=== PATIENT | male | born 1990 | race Caucasian/White ===

== ENCOUNTER 2023-06-19 11:00 | Outpatient (RCR) | payer MEDICARE, OTHER, SELFPAY | END 2023-07-19 13:11 | disposition home or self-care (01) | LOC: PT 11:00 | PROVIDERS: Visit Provider Family Medicine | DX: M21.752 Unequal limb length (acquired), left femur (principal) | CPT/HCPCS: 97110; 97163; 97530 ==

== ENCOUNTER 2024-03-11 11:29 | Outpatient (CLI) | payer MEDICARE, OTHER, SELFPAY ==
[2024-03-11 11:47] LABS: Occult Blood,Stool Negative (Negative)
[2024-03-13 15:12] LABS: Calprotectin, Fecal <5 ug/g (0-120)
== END 2024-03-11 23:59 | disposition home or self-care (01) ==
LOC: LAB.DROPOF 11:30
PROVIDERS: PCP Nurse Practitioner; Visit Provider Nurse Practitioner
DX: K62.5 Hemorrhage of anus and rectum (principal); R19.4 Change in bowel habit; R19.8 Other specified symptoms and signs involving the digestive system and abdomen; Z80.0 Family history of malignant neoplasm of digestive organs
CPT/HCPCS: 82272; 83993; G0328

== ENCOUNTER 2024-05-23 07:16 | Day surgery (SDC) | payer MEDICARE, OTHER, SELFPAY ==
[2024-05-21 11:28] VITALS: BMI 26.4
[2024-05-23 07:47] VITALS: BP 121/82; PULSE 104; RESP 18; TEMP 36.6; O2SAT 98
--- NOTE | 2024-05-23 07:56 | EXP.ANES.CKL ---
[facility] Disclaimer: The information contained in this section may have been updated after the patient was seen, as this information can be updated by other users. Medical History Allergies Hernia of testicle Recurrent hernia Heartburn Surgical History No history of previous surgery Family History Grandmother Anemia Stroke Coronary artery disease FHx: mental illness Heart attack Hypertension Grandfather Anemia Asthma Cancer FHx: mental illness Hyperlipidemia Hypertension Brother Asthma Cancer FHx: mental illness Family/Other Cancer Diabetes Heart attack Hypertension Father Cancer Coronary artery disease Mother FHx: mental illness Hyperlipidemia Hypertension Social History Smoking Status: Never smoker alcohol intake: never substance use type: denies use current occupational status: disabled Travel in the last 8 weeks: None adopted: No caffeine: No [facility] Anesthesia Checklist Patient Identification Patient Identification: Arm Band and Verbal (Name & ) Structural Data Admitted From: Home Planned Operative Procedure/s: Colonoscopy Consent for Planned Operative Procedure(s) Verified: Yes Verified Documents: Surgical Consent and History and Physical NPO Status Verified Time NPO: 00:00 Additional verifications Anesthesia Reactions: No Airway Assessment Mallampati Score:: Class I C-Spine Mobility Assessed: Yes TMJ Mobility Assessed: Yes Dentition: Good Dentition Neurological Assessment Level of Consciousness: Awake Hx Seizures: No Numbness or tingling in extremities: No Anesthesia Plan Anesthesia Risk discussed: Yes Anesthesia Plan: Verified ASA Class: II Anesthesia Type: MAC
[2024-05-23 08:48] VITALS: O2SAT 98
--- NOTE | 2024-05-23 08:52 | EXP.HP ---
History of Present Illness *Admission Date: 05/23/24 *Reason for visit:: Bright red rectal bleeding *History of present illness: Mr. Mathews is a 33-year-old gentleman who is here for bright red rectal bleeding since November 2023. He also has had a change in bowel habits and a strong family history of colon cancer (father in his late 40s). He has never had a colonoscopy. The examination is deemed medically necessary for colonoscopy. The patient has been seen, interviewed and examined prior to the procedure by both myself and the anesthesia provider. [facility] Disclaimer: The information contained in this section may have been updated after the patient was seen, as this information can be updated by other users. Medical History Allergies Hernia of testicle Recurrent hernia Heartburn Surgical History No history of previous surgery Family History Grandmother Anemia Stroke Coronary artery disease FHx: mental illness Heart attack Hypertension Grandfather Anemia Asthma Cancer FHx: mental illness Hyperlipidemia Hypertension Brother Asthma Cancer FHx: mental illness Family/Other Cancer Diabetes Heart attack Hypertension Father Cancer Coronary artery disease Mother FHx: mental illness Hyperlipidemia Hypertension Social History Smoking Status: Never smoker alcohol intake: never substance use type: denies use current occupational status: disabled Travel in the last 8 weeks: None adopted: No caffeine: No Other Medical History Have you received the Pneumonia Vaccine: No Review of Systems Review of Systems Review of systems (narrative): Negative *Cardiovascular Comments: Negative *Gastrointestinal Comments: Negative *Genitourinary Comments: Negative *Musculoskeletal Comments: Negative *Neurologic Comments: Negative Meds Home Medications and Allergies Home Medications ?Medication ?Instructions ?Recorded ?Confirmed ?Type acetaminophen 160 mg chewable 640 mg PO Q6H 03/07/24 05/23/24 History tablet (Children's Tylenol) betamethasone valerate 0.1 % 1 applic topical DAILY 03/07/24 05/23/24 History topical ointment bismuth subsalicylate 262 mg 2 tab PO Q30-60M PRN Acid Reflux 03/07/24 05/23/24 History chewable tablet (Pepto-Bismol) famotidine-Ca carb-mag hydrox 10 1 tab PO DAILY PRN Acid Reflux 03/07/24 05/23/24 History mg-800 mg-165 mg chewable tablet (Pepcid Complete) ibuprofen 100 mg chewable tablet 200 mg PO Q8H 03/07/24 05/23/24 History (Children's Motrin Jr Strength) sodium,potassium,mag sulfates 17.5 See Rx Instructions PO .COMPLEX 05/13/24 05/23/24 Rx gram-3.13 gram-1.6 gram oral soln #354 mL (Suprep Bowel Prep Kit) New Prescriptions to Start Prescriptions: Allergies Allergy/AdvReac Type Severity Reaction Status Date / Time latex Allergy Severe Blister Verified 05/23/24 07:45 amoxicillin Allergy Intermediate Rash Verified 05/23/24 07:45 Penicillins Allergy Intermediate Rash Verified 05/23/24 07:45 clarithromycin [From Biaxin] Allergy Mild Vomiting Verified 05/23/24 07:45 erythromycin base Allergy Mild Rash Verified 05/23/24 07:45 choraceptic spray Allergy Mild Hives Uncoded 03/07/24 10:44 Exam Data for Last 24 hours Vital signs and Labs for Last 24 Hours: Temp Pulse Resp BP Pulse Ox O2 Del Method 97.8 F 104 H 18 121/82 98 Room Air 05/23/24 07:47 05/23/24 07:47 05/23/24 07:47 05/23/24 07:47 05/23/24 07:47 05/23/24 07:47 I & O for Last 24 hours: Intake & Output 05/20/24 05/21/24 05/22/24 05/23/24 23:59 23:59 23:59 23:59 Weight 190 lb *Routine HEENT Exam Head: Present normocephalic Eye: Present EOMI and PERRL ENT: Present mucous membranes moist *Routine Neck Exam Neck: Present supple *Routine Respiratory Exam Respiratory: Present CTA bilaterally *Routine Cardiovascular Exam Cardiovascular: Present RRR *Routine Abdominal Exam Abdominal: Present soft and normoactive bowel sounds; Absent tenderness *Routine Rectal Exam Rectal:: deferred *Routine Genitalia Exam Genitalia:: deferred *Routine Extremities Exam Extremities: Absent cyanosis, clubbing or edema *Routine Skin Exam Skin: Present warm; Absent rash *Routine Neurological Exam Neurological: Present alert and oriented X3 Assessment and Plan *Assessment and plan (1) BRBPR (bright red blood per rectum): Status: Acute Category: Medical Code(s): K62.5 - Hemorrhage of anus and rectum (2) Family history of colon cancer in father: Status: Acute Category: Medical Code(s): Z80.0 - Family history of malignant neoplasm of digestive organs (3) Change in bowel movement: Status: Acute Category: Medical Code(s): R19.8 - Other specified symptoms and signs involving the digestive system and abdomen Plan A/P: 1. Bright red blood per rectum (new since November 2023), change in bowel habits and strong family history of colon cancer is the preprocedural diagnosis. The patient will be anesthetized/sedated using MAC sedation. The patient has been seen and examined. Cardiac and lung assessment prior to the examination is stable. Proceed with planned colonoscopy
--- NOTE | 2024-05-23 09:00 | P.PCN_ITS ---
[facility] Procedure Note Date: 05/23/24 Time: 09:13 Procedure Note:: Colonoscopy Procedure Report: Colonoscopy with cold snare polypectomy and hemorrhoid band ligation Endoscopist: Babatunde Padilla II, MD Referring physician: TAMEKA Harrell Date of Procedure: May 23, 2024 Equipment: Olympus 190 variable stiffness pediatric colonoscope Sedation: MAC sedation Indication: Mr. Mathews is a 33-year-old gentleman who is here for diagnostic colonoscopy secondary to bright red rectal bleeding that began in November 2023. This started on November 19, 2023 and he had 3 days of bright red blood. This recurred again 2 weeks later. He states that he has had this every 2 to 3 weeks and he will have episodic blood on the tissue and occasionally on the bowel movement for 2 to 3 days. He reports no abdominal pain but does have some tenesmus and the feeling of incomplete defecation with excessive wiping. He reports no mucus with his bowel movements. His bowel movements will vary in color and consistency between hard, soft and watery as well as light to dark bowel movements. He reports no weight loss. He has had no gassiness or bloating. He does state that his father had colon cancer in his late 40s. His maternal grandfather had colon cancer diagnosed recently at the age of 83. He has 2 paternal uncles with colon cancer. This is his first colonoscopy. Procedure: Prior to the procedure, a history and physical exam was performed, and patient's medications and allergies were reviewed. The risks, benefits and alternatives of the sedation and procedure were discussed with the patient. All questions were answered and informed consent was obtained. The patient was brought to the procedure room. Patient identification and proposed procedure were verified by the physician and the nurse. The patient was placed in a left lateral decubitus position and the scope was passed under direct vision. Throughout the procedure, the patient's blood pressure, pulse, and oxygen saturations were monitored continuously. The colonoscopy was accomplished without difficulty. The patient tolerated the procedure well. Findings: On digital rectal examination there was normal rectal tone. There were no external hemorrhoids or anal fissures. The prostate was 2+, smooth, soft, symmetric without nodules. The colonoscope was introduced through the anal canal to the rectum and advanced to the cecum. The ileocecal valve and appendiceal orifice were identified. The scope was advanced a short distance into the ileum which appeared grossly normal. The scope was then withdrawn into the colon. There was a diverticulum in the cecum. There was a diminutive 3 mm polyp in the descending colon removed via cold snare polypectomy. The remaining cecum, ascending, transverse, descending, sigmoid and rectum were grossly normal. There were no other mucosal abnormalities identified. Upon retroflexion within the rectum there were 2 internal hemorrhoids.3 columns of hemorrhoids were banded using 3 bands with excellent ligation effect. The preparation was excellent throughout with [place] Preparation Score of 9. The cecal time was 12 minutes. Impression: 1. Diminutive 3 mm descending colon polyp 2. Grade 2 internal hemorrhoids status post band ligation x 3 Plan: I am going to strongly encourage bulking fiber supplementation with psyllium on a maintenance basis. I will discuss the findings with the patient and family. I would continue surveillance colonoscopy at a 5-year interval with his family history and possible adenomatous polyp at young age. The patient I believe, was referred to [facility] genetic clinic for [place] syndrome testing.
[2024-05-23 09:23] VITALS: BP 100/63; PULSE 90; RESP 16; TEMP 36.3; O2SAT 94
[2024-05-23 09:33] VITALS: BP 103/62; PULSE 90; RESP 18; TEMP 36.3; O2SAT 97
[2024-05-23 09:43] VITALS: BP 111/78; PULSE 82; RESP 18; O2SAT 99
[2024-05-23 09:53] VITALS: BP 131/64; PULSE 83; RESP 18; O2SAT 99
== END 2024-05-23 09:53 | disposition home or self-care (01) ==
PROVIDERS: PCP Nurse Practitioner; Visit Provider Internal Medicine Gastroenterology
PROC: 0DJD8ZZ Inspection of Lower Intestinal Tract, Via Natural or Artificial Opening Endoscopic (ICD-10-PCS; CPT 45378; principal; 2024-05-23 09:00)
DX: K62.5 Hemorrhage of anus and rectum (principal); Z80.0 Family history of malignant neoplasm of digestive organs; R19.8 Other specified symptoms and signs involving the digestive system and abdomen; D12.4 Benign neoplasm of descending colon; K64.1 Second degree hemorrhoids
CPT/HCPCS: 45385; 45398; 88305; C1889; J2704